=== PATIENT | female | born 1955 | race Asian ===

== ENCOUNTER 2017-04-13 16:28 | Emergency (ER) | payer OTHER ==
[~2017-04-13] VITALS: Ht 160 cm; Wt 56.7 kg
[2017-04-13] MEDS ORDERED: HYDROCORTISON28.4 G5 TP (17:27)
[2017-04-13] MEDS ORDERED: BENADRYL25 MG ORAL (17:27)
[2017-04-13] MEDS ORDERED: PREDNISONE20 MG ORAL (17:27)
[2017-04-13 17:45] VITALS: BP 130/78
--- NOTE | 2017-04-13 22:32 | Emergency Room Report ---
History of Present Illness General Chief Complaint: Skin Rash/Abscess Source: Patient Present Illness [facility] The patient is a 62-year-old female presenting for possible allergic reaction. She states that she had an intradermal injection of the face one week prior for cosmetic reasons and has developed redness, itching, and pain to these areas. She went to followup with a fire adjuster today who told her to come to the emergency department. She has never had any injections like this in the past. She denies any known allergies. Pain is a 10 out of 10 burning. Worse with touch. She has not tried any medications for this. She denies any other symptoms including nausea, vomiting, fever, chills, shortness of breath, chest pain Allergies: Coded Allergies: No Known Allergies (Unverified , 04/13/17) Patient History Past Medical History: see triage record Pertinent Family History: none Reviewed Nursing Documentation: PMH: Agreed, PSxH: Agreed Nursing Documentation-PMH Past Medical History: No Stated History Review of Systems All Other Systems: negative except mentioned in HPI Physical Exam Vital Signs Date Time Temp Pulse Resp B/P (MAP) Pulse Ox O2 Delivery O2 Flow Rate FiO2 04/13/17 16:20 98.2 82 16 135/82 99 Room Air Sp02 EP Interpretation: reviewed, normal General Appearance: no apparent distress, alert, GCS 15, non-toxic Head: normocephalic, atraumatic Eyes: bilateral eye normal inspection, bilateral eye PERRL ENT: hearing grossly normal, normal pharynx, no angioedema, normal voice Neck: full range of motion, supple/symm/no masses Respiratory: chest non-tender, lungs clear, normal breath sounds, speaking full sentences Cardiovascular #1: regular rate, rhythm, no edema Musculoskeletal: back normal, gait/station normal, normal range of motion, non- tender Neurologic: alert, oriented x3, responsive, motor strength/tone normal, sensory intact, speech normal Psychiatric: judgement/insight normal, memory normal, mood/affect normal, no suicidal/homicidal ideation Skin: rash - bilat cheeks have erythema and swelling. No fluctuance. No pitting edema. Warm and dry. Non tender Lymphatic: no adenopathy Medical Decision Making PA Attestation Dr. Edgar is my supervising physician. Patient management was discussed with my supervising physician Diagnostic Impression: Primary Impression: Allergic reaction to drug Qualified Codes: T78.40XA - Allergy, unspecified, initial encounter ER Course The patient is a 62-year-old female presenting for possible allergic reaction. Differential diagnoses considered but not limited to: Contact dermatitis, allergic reaction, anaphylaxis, cellulitis, among others Physical exam: bilat cheeks have erythema and swelling. No fluctuance. No pitting edema. Warm and dry. Non tender. No angioedema Lungs are clear to auscultation bilaterally Skin elsewhere has no rash The patient is given oral steroids and Benadryl in the emergency department and will be discharged home with the same. She will apply topical steroids to the area and will avoid sunlight to the areas. She is to followup with her primary doctor and fire adjuster as soon as possible Last Vital Signs Date Time Temp Pulse Resp B/P (MAP) Pulse Ox O2 Delivery O2 Flow Rate FiO2 04/13/17 17:45 98.6 66 16 130/78 99 Room Air Status: improved Disposition: HOME, SELF-CARE Condition: Improved Scripts Diphenhydramine Hcl* (BENADRYL*) 25 Mg Capsule 25 MG ORAL Q6H Y for Itching, #30 CAP Prov: XIAO GROSSMAN 04/13/17 Prednisone* (PREDNISONE*) 20 Mg Tablet 40 MG ORAL DAILY, #8 TAB Prov: XIAO GROSSMAN 04/13/17 Hydrocortisone 1% cream (Hydrocortisone 1% cream) Y Cr 1 APPLIC TP TID, #30 GM Prov: XIAO GROSSMAN. 04/13/17 Referrals: [facility],REFERR[facility] (PCP) Patient Instructions: Rash, Pruritus Additional Instructions: I discussed my findings with the patient. All questions and concerns have been answered. Treatment and medication compliance have been addressed. I advised the patient that they need to follow up with PMD in 3-5 days. Return to ED if symptoms worsen, new symptoms arise, or if needed for any reason. Patient verbalized understanding of discharge instructions. XIAO GROSSMAN Apr 13, 2017 22:32
== END 2017-04-13 17:45 | disposition home or self-care (01) ==
LOC: EDBD 16:28 → EMR 17:08
DX: T78.40XA Allergy, unspecified, initial encounter (principal); X58.XXXA Exposure to other specified factors, initial encounter; Y93.9 Activity, unspecified; Y92.9 Unspecified place or not applicable
CPT/HCPCS: 99284